=== PATIENT | male | born 1960 | race Caucasian/White ===

== ENCOUNTER 2020-04-21 10:14 | Inpatient (IN) ==
[2020-04-21] MEDS ORDERED: ONDANSETRON 4 MG/2 ML VIAL IV PRN (13:13)
[2020-04-21] MEDS ORDERED: ACETAMINOPHEN 325 MG TABLET PO PRN (13:13)
[2020-04-21] MEDS ORDERED: HYOSCYAMINE 0.125 MG TABLET PO PRN (13:22)
[2020-04-21] MEDS: SODIUM CHLORIDE 0.9% 1,000 ML IV SCH (16:28)
[2020-04-21] MEDS: PIPERACILLIN/TAZOBACTAM 3,375 MG in SODIUM CHLORIDE 0.9% 100 ML IV SCH ×2 (16:48→23:37)
[2020-04-21] MEDS: ENOXAPARIN 30 MG/0.3 ML SYRINGE SUBCUT SCH (17:04)
[2020-04-21 17:44] LABS: Bilirubin,Urine Negative (Negative); Blood, Urine Negative (Negative); Glucose,Urine (UA) Negative (Negative); Ketones,Urine Negative (Negative); Mucus,Urine Occasional /LPF (Occasional); Nitrite,Urine Negative (Negative); Protein,Urine Negative; RBC,Urine 2 /HPF (0-4); Urine Appearance CLEAR (Clear); Urine Color Yellow (Yellow); Urine Urobilinogen < 2.0 EU/DL (0.2-1.0); WBC,Urine <1 /HPF (0-6)
[2020-04-21] MEDS: DOCUSATE SODIUM 100 MG CAPSULE PO SCH (21:45)
[2020-04-22 05:53] LABS: Basophils % 0.3 % (0.0-0.8); Eosinophils # 0.2 10*3/uL (0.0-0.87); Eosinophils % 3.2 % (0.00-10.9); Hematocrit 35.6 VOL% (42.0-52.0); Hemoglobin 12.2 GM/DL (14.0-18.0); Immature Granulocytes % 0.6 %; Immature Granulocytes Absolute 0.04 #; Lymphocytes # 0.8 10*3/uL (1.4-4.0); Lymphocytes % 12.2 % (21.2-54.2); Mean Corpuscular HGB Conc 34.3 GM/DL (32-36); Mean Corpuscular Volume 100.8 FL (87-102); Monocytes % 10.1 % (1.7-12.7); Neutrophils % 73.6 % (38.7-73.9); Platelet Count 189 T/CUMM (130-400); Red Blood Count 3.53 MC/CUMM (3.8-5.5); Red Cell Distribution Width 12.6 % (9.3-17.3); White Blood Count 6.3 T/CUMM (4-12)
[2020-04-22 06:15] LABS: Albumin 2.8 G/DL (3.4-5.0); Calcium 8.7 MG/DL (8.5-10.1); Osmolality,Calculated 280.1 MOS/KG (273-304); Total Protein 6.8 G/DL (6.4-8.3)
[2020-04-22] MEDS: SODIUM CHLORIDE 0.9% 1,000 ML IV SCH ×4 (06:36→18:36)
[2020-04-22] MEDS: METOPROLOL SUCCINATE XL 25 MG TABLET PO SCH (08:28)
[2020-04-22] MEDS: PIPERACILLIN/TAZOBACTAM 3,375 MG in SODIUM CHLORIDE 0.9% 100 ML IV SCH ×3 (08:28→23:44)
[2020-04-22] MEDS: DOCUSATE SODIUM 100 MG CAPSULE PO SCH ×2 (08:59→21:15)
[2020-04-22] MEDS: PANTOPRAZOLE 40 MG TABLET PO SCH (08:59)
[2020-04-22] MEDS ORDERED: ALBUTEROL 2.5 MG/3 ML NEB RESP TX ONE (09:09)
[2020-04-22] MEDS ORDERED: DIAZEPAM 5 MG TABLET PO ONE (09:09)
[2020-04-22] MEDS ORDERED: MIDAZOLAM 2 MG/2 ML VIAL ONE (12:07)
[2020-04-22] MEDS ORDERED: fentaNYL 100 MCG/2 ML VIAL ONE (12:08)
[2020-04-22] MEDS ORDERED: DEXAMETHASONE 4 MG/1 ML VIAL ONE ×2 (12:08→14:22)
[2020-04-22] MEDS ORDERED: LIDOCAINE 1% 5 ML VIAL ONE (12:08)
[2020-04-22] MEDS ORDERED: ROPIVACAINE 0.5% 30 ML VIAL ONE (12:08)
[2020-04-22] MEDS ORDERED: TISSUE ADHESIVE 1 EACH APPLICATOR TOP ONE (12:40)
[2020-04-22] MEDS ORDERED: INDOCYANINE GREEN 25 MG VIAL IV ONE (12:40)
[2020-04-22] MEDS ORDERED: SUCCINYLCHOLINE 200 MG/10 ML VIAL ONE (13:37)
[2020-04-22] MEDS ORDERED: ROCURONIUM 50 MG/5 ML VIAL IV ONE (13:37)
[2020-04-22] MEDS ORDERED: LIDOCAINE 2% 5 ML VIAL ONE (13:37)
[2020-04-22] MEDS ORDERED: propofoL 200 MG/20 ML VIAL IV ONE (13:37)
[2020-04-22] MEDS ORDERED: LIDOCAINE 1%/EPI INJ 20 ML VIAL ONE (13:39)
[2020-04-22] MEDS ORDERED: BUPIVACAINE MPF 0.25% 30 ML VIAL ONE (13:39)
[2020-04-22] MEDS ORDERED: LACTATED RINGERS 1,000 ML IV ONE (14:02)
[2020-04-22] MEDS ORDERED: ePHEDrine 50 MG/ML VIAL ONE (14:08)
[2020-04-22] MEDS ORDERED: GLYCOPYRROLATE 0.4 MG/2 ML VIAL ONE ×2 (14:08→15:23)
[2020-04-22] MEDS ORDERED: KETOROLAC 30 MG/1 ML VIAL ONE (15:23)
[2020-04-22] MEDS ORDERED: NEOSTIGMINE 10 MG/10 ML VIAL ONE (15:23)
[2020-04-22] MEDS ORDERED: HYDROmorphone 2 MG/1 ML VIAL ONE (15:40)
[2020-04-22] MEDS ORDERED: diphenhydrAMINE 50 MG/1 ML VIAL IV PRN (16:06)
[2020-04-22] MEDS ORDERED: ONDANSETRON 4 MG/2 ML VIAL IV PRN (16:06)
[2020-04-22] MEDS ORDERED: MEPERIDINE 25 MG/1 ML VIAL IV PRN (16:06)
[2020-04-22] MEDS ORDERED: PROMETHAZINE INJ 25 MG in SODIUM CHLORIDE 0.9% 50 ML IV PRN (16:06)
[2020-04-22] MEDS ORDERED: HYDROmorphone 2 MG/1 ML VIAL IV PRN (16:52)
[2020-04-22] MEDS: ENOXAPARIN 30 MG/0.3 ML SYRINGE SUBCUT SCH (17:02)
[2020-04-22] MEDS: KETOROLAC 30 MG/1 ML VIAL IV SCH ×2 (17:28→23:43)
[2020-04-22 17:37] LABS: Basophils % 0.2 % (0.0-0.8); Eosinophils % 0.5 % (0.00-10.9); Hematocrit 33.6 VOL% (42.0-52.0); Hemoglobin 11.5 GM/DL (14.0-18.0); Immature Granulocytes % 0.6 %; Immature Granulocytes Absolute 0.04 #; Lymphocytes # 0.3 10*3/uL (1.4-4.0); Lymphocytes % 4.5 % (21.2-54.2); Mean Corpuscular HGB Conc 34.2 GM/DL (32-36); Mean Corpuscular Volume 98.8 FL (87-102); Mean Platelet Volume 8.5 FL (9.6-12.0); Monocytes % 3.5 % (1.7-12.7); Neutrophils % 90.7 % (38.7-73.9); Platelet Count 194 T/CUMM (130-400); Red Cell Distribution Width 12.7 % (9.3-17.3); White Blood Count 6.6 T/CUMM (4-12)
[2020-04-22 18:08] LABS: Calcium 8.5 MG/DL (8.5-10.1); Osmolality,Calculated 270.8 MOS/KG (273-304)
[2020-04-22 18:28] LABS: Band Neutrophils 3 % (0-10); Eosinophils 1 % (0-10); Lymphocytes 8 % (20-55); Segmented Neutrophils 84 % (50-85); Total Cells Counted 100
[2020-04-22 18:29] LABS: Macrocytosis Slight; Platelet Estimate Normal
[2020-04-22] MEDS ORDERED: SIMVASTATIN 10 MG TABLET PO SCH (21:00)
[2020-04-23] MEDS: KETOROLAC 30 MG/1 ML VIAL IV SCH (05:39)
[2020-04-23] MEDS: SODIUM CHLORIDE 0.9% 1,000 ML IV SCH (05:49)
[2020-04-23 06:25] LABS: Basophils % 0.1 % (0.0-0.8); Hematocrit 31.9 VOL% (42.0-52.0); Immature Granulocytes % 0.3 %; Immature Granulocytes Absolute 0.03 #; Lymphocytes # 0.6 10*3/uL (1.4-4.0); Lymphocytes % 6.7 % (21.2-54.2); Mean Corpuscular HGB Conc 34.5 GM/DL (32-36); Mean Corpuscular Volume 99.1 FL (87-102); Mean Platelet Volume 8.8 FL (9.6-12.0); Monocytes % 10.1 % (1.7-12.7); Neutrophils % 82.8 % (38.7-73.9); Platelet Count 186 T/CUMM (130-400); Red Blood Count 3.22 MC/CUMM (3.8-5.5); Red Cell Distribution Width 12.4 % (9.3-17.3); White Blood Count 9.5 T/CUMM (4-12)
[2020-04-23 06:50] LABS: Calcium 8.3 MG/DL (8.5-10.1); Osmolality,Calculated 282.1 MOS/KG (273-304)
[2020-04-23 06:55] LABS: Band Neutrophils 1 % (0-10); Lymphocytes 10 % (20-55); Platelet Estimate Adequate; Segmented Neutrophils 73 % (50-85); Total Cells Counted 100
[2020-04-23 06:56] LABS: Hypochromasia 1+; Microcytosis 1+
[2020-04-23 07:39] VITALS: BP 122/80
[2020-04-23] MEDS: METOPROLOL SUCCINATE XL 25 MG TABLET PO SCH (10:25)
[2020-04-23] MEDS: DOCUSATE SODIUM 100 MG CAPSULE PO SCH (10:25)
[2020-04-23] MEDS: PANTOPRAZOLE 40 MG TABLET PO SCH (10:25)
[2020-04-23] MEDS: PIPERACILLIN/TAZOBACTAM 3,375 MG in SODIUM CHLORIDE 0.9% 100 ML IV SCH (10:25)
== END 2020-04-23 10:05 | disposition home or self-care (01) | DRG 329 ==
LOC: N.3E 10:14 → N.CT 10:14
PROVIDERS: ADMIT Family Medicine; ATTEND Family Medicine